=== PATIENT | male | born 1980 | race Two or more races ===

== ENCOUNTER 2021-09-12 12:55 | Day surgery (SDC) | payer OTHER ==
[~2021-09-12] VITALS: Ht 167.6 cm; Wt 76.6 kg
[~2021-09-12 12:55] MED LIST: NS 1,000 ML IV ONE; OMEP40CA4 PO
[2021-09-12] MEDS ORDERED: fentaNYL 100 MCG/2 ML INJECTION As Ordered ONE (14:15)
[2021-09-12] MEDS ORDERED: LIDOCAINE 2% 100MG/5ML SDV (FOR ANES.) As Ordered ONE (14:15)
[2021-09-12] MEDS ORDERED: propofoL 200 MG/20 ML VIAL As Ordered ONE (14:15)
[2021-09-12 14:56] VITALS: BP 151/94
== END 2021-09-12 14:57 | disposition home or self-care (01) ==
LOC: M OPP 12:55
PROVIDERS: ATTEND Internal Medicine Gastroenterology
DX: K44.9 Diaphragmatic hernia without obstruction or gangrene (principal); K21.9 Gastro-esophageal reflux disease without esophagitis; R07.89 Other chest pain; E11.9 Type 2 diabetes mellitus without complications; I10 Essential (primary) hypertension; Z79.899 Other long term (current) drug therapy
CPT/HCPCS: 43239; 88305; J3010